=== PATIENT | female | born 1995 | race Caucasian/White ===

== ENCOUNTER 2018-03-22 09:50 | Outpatient (CLI) | payer OTHER ==
--- NOTE | 2018-03-22 11:30 | ULT ---
URINARY BLADDER SONOGRAM: History: Dysuria. FINDINGS: Urinary bladder has a normal appearance. Bilateral ureteral jets are visualized. Post void urinary bladder residual is 2.0 cc. IMPRESSION: Normal sonographic appearance of the urinary bladder. POS: [facility]
--- NOTE | 2018-03-22 11:50 | ULT ---
PELVIC SONOGRAM TRANSABDOMINAL AND TRANSVAGINAL IMAGING WITH DUPLEX EVALUATION: History: Pelvic pain. Urinary frequency. FINDINGS: The urinary bladder is unremarkable. Uterus has a heterogeneous echotexture and is 6.6 cm. Endometriu m is 1.1 cm. Physiologic amount of free fluid within the cul-de-sac. Uterus is retroverted. Left ovar y is 4.2 cm length with a 3.5 cm cyst. Good color and spectral doppler flow. Right ovary not visualiz ed. No solid or cystic adnexal masses. IMPRESSION: 1. Left ovarian cyst, 3.5 cm. 2. Retroverted uterus. POS: [facility]
== END 2018-03-22 09:51 | disposition home or self-care (01) ==
LOC: SCSULT 09:50
PROVIDERS: ATTEND Family Medicine
DX: R10.2 Pelvic and perineal pain (principal); N83.202 Unspecified ovarian cyst, left side; N85.8 Other specified noninflammatory disorders of uterus
CPT/HCPCS: 76856

== ENCOUNTER 2018-05-10 13:06 | Outpatient (CLI) | payer OTHER ==
--- NOTE | 2018-05-10 14:44 | ULT ---
PELVIS ULTRASOUND WITH PABON SCALE AND DOPPLER COLOR FLOW AND SPECTRAL ANALYSIS TRANSVAGINAL AND TRANSABDOMINAL PELVIC ULTRASOUND PERFORMED: INDICATION: Left ovary cyst, followup. FINDINGS: The uterus is unremarkable for patient's age, without evidence of a focal mass. Endometrial stripe i s appropriate in volume for premenopausal patient. Doppler evaluation reveals flow to each ovary. T here is a grouping of cysts within the left ovary, the dominant of which measures approximately 1.9 c m. There is no internal flow of the cysts demonstrated by Doppler assessment. No significant free p elvic fluid. IMPRESSION: Left ovarian cyst, the largest of which measures approximately 1.9 cm. Findings are most likely phys iologic, given patient's age. Dominant cyst has reduced in size since the prior exam. POS: [facility]
== END 2018-05-10 13:07 | disposition home or self-care (01) ==
LOC: SCSULT 13:06
PROVIDERS: ATTEND Family Medicine
DX: N83.202 Unspecified ovarian cyst, left side (principal)
CPT/HCPCS: 76856